=== PATIENT | female | born 1965 | race Caucasian/White ===

== ENCOUNTER 2018-09-24 13:15 | Emergency (ER) ==
[2018-09-24 13:26] VITALS: BP 154/84; TEMP 98.6; BMI 16.5
--- NOTE | 2018-09-24 14:51 | ED.PDOC ---
General ED Provider: Dr. CHERIE BAUMAN Chief Complaint: Respiratory Complaint Stated Complaint: 53 y old coughing,crackles and areas of diminished breathing sounds,No Hx of asthma however smoking and COPD.Cough is dry.Denies any comorbid conditions or medications other than cough and mucus etc. Time Seen by Physician: 14:52 Mode of Arrival: Walk-In Information Source: Patient Exam Limitations: No limitations Primary Care Provider: KERON HO Nursing and Triage Documentation Reviewed and Agree: Yes Does patient meet sepsis criteria?: No System Inflammatory Response Syndrome: Not Applicable Sepsis Protocol: For patient's 13 years and over: Temp is 96.8 and below OR 101 and greater Pulse >90 BPM Resp >20/minute Acutely Altered Mental Status Are patient's symptoms suggestive of a new infection, such as: -Pneumonia -Skin, Soft Tissue -Endocarditis -UTI -Bone, Joint Infection -Implantable Device -Acute Abdominal Infection -Wound Infection -Meningitis -Blood Stream Catheter Infection -Unknown Respiratory Complaint Exam - Respiratory Complaint/Exam Onset/Duration: few days Symptoms Are: Still present Timing: Intermittent Initial Severity: Mild Current Severity: Moderate Location: Chest Character: Reports: Non-productive cough, Dry cough Aggravating: Reports: URI, Passive smoke exposure Alleviating: Reports: Bronchodilators, Spontaneous resolution Associated Signs and Symptoms: Reports: Wheezing, Hoarseness, Decreased oral intake, Increased thirst Related History: Reports: Similar episode Related Surgical History: Reports: None Pulmonary Embolism Risk Factors: Smoking Cardiac Risk Factors: Reports: Hypertension Pseudomonas Risk Factors: Reports: None Tuberculosis Risk Factors: Reports: None Status Asthmaticus Risk Factors: Reports: None Home Oxygen Use: No Recent Stress Test: No Recent Echo/LV Function: No Current Antibiotic Use: No Current Asthma Medication Use: No Respiratory Distress: None Inadequate Respiratory Effort: No Dysphagia Present: No Stridor Present: No JVD Present: No Accessory Muscle Use: No Retractions: Not Present Diminished Breath Sounds: Yes Sinus Tenderness: None Grunting Respirations: No Kussmaul Respirations: No Differential Diagnoses: Asthma, COPD Exacerbation, Pneumonia, Bronchitis Review of Systems - Review Of Systems Constitutional: Reports: No symptoms Eyes: Reports: No symptoms Ears, Nose, Mouth, Throat: Reports: No symptoms Respiratory: Reports: Cough, Short of air, Wheezing Cardiac: Reports: No symptoms GI: Reports: No symptoms : Reports: No symptoms Musculoskeletal: Reports: No symptoms Skin: Reports: No symptoms Neurological: Reports: No symptoms Endocrine: Reports: No symptoms Hematologic/Lymphatic: Reports: No symptoms All Other Systems: Reviewed and Negative Past Medical History - Past Medical History Previously Healthy: Yes Endocrine: Reports: None Cardiovascular: Reports: None Respiratory: Reports: None Hematological: Reports: None Gastrointestinal: Reports: None Genitourinary: Reports: None Neuro/Psych: Reports: None Musculoskeletal: Reports: None Cancer: Reports: None Last Menstrual Period: 3 years - Surgical History General Surgical History: Reports: None - Family History Family History: Reports: None - Social History Smoking Status: Current every day smoker Hx Substance Use: No Alcohol Screening: None - Immunizations Tetanus Shot up to Date: No Physical Exam - Physical Exam Appearance: Well-appearing Ill-appearing: None Pain Distress: None Eyes: HAKEEM, EOMI, Conjunctiva clear ENT: Ears normal, Nose normal, Oropharynx normal Neck: Supple Respiratory: Airway patent, Breath sounds diminished, Respirations nonlabored, Crackles, Wheezes Cardiovascular: RRR, Pulses normal, No rub GI/: Soft, Nontender Musculoskeletal: Normal strength, ROM intact, No edema Skin: Warm, Dry Neurological: Sensation intact, Motor intact, Reflexes intact, Alert, Oriented Psychiatric: Affect appropriate Critical Care Note - Critical Care Note Total Time (mins): 0 Course - Course Hematology/Chemistry: 09/24/18 15:10 Orders, Labs, Meds: Lab Review 09/24/18 15:10 WBC 15.82 H RBC 3.93 L Hgb 12.5 Hct 35.5 L MCV 90.3 MCH 31.8 H MCHC 35.2 RDW Coeff of Deja 12.0 Plt Count 413 Immature Gran % (Auto) 1.1 Neut % (Auto) 79.1 Lymph % (Auto) 10.7 [place] % (Auto) 8.7 Eos % (Auto) 0.1 Baso % (Auto) 0.3 Immature Gran # (Auto) 0.2 Neut # (Auto) 12.5 H Lymph # (Auto) 1.7 [place] # (Auto) 1.4 Eos # (Auto) 0.0 Baso # (Auto) 0.0 Orders Category Date Time Status NEBULIZER TREATMENT Stat CARDIO 09/24/18 15:01 Completed ED IV/MEDIPORT/POWERPORT .ONCE EMERGENCY 09/24/18 15:00 Inactive CBC W/ AUTO DIFF Stat LAB 09/24/18 15:10 Completed COMPREHENSIVE METABOLIC PANEL Stat LAB 09/24/18 14:59 Ordered 0.9 % Sodium Chloride [Saline Flush] MEDS 09/24/18 15:00 Ordered 1 syr IVF PRN PRN Albuterol Sulfate 0.083% Neb [Albuterol 0.083% Neb] MEDS 09/24/18 15:00 Discontinued 1 vial NEB ONCE STA Sodium Chloride 0.9% [Sodium Chloride] 1,000 ml MEDS 09/24/18 15:00 Active IV BOLUS CHEST, 2 VIEWS PA & LAT Stat RADS 09/24/18 14:56 Completed Medications Generic Name Dose Route Start Last Admin Trade Name Freq PRN Reason Stop Dose Admin Sodium Chloride 1,000 mls @ 1,000 mls/hr 09/24/18 15:00 09/24/18 15:15 Sodium Chloride IV 09/24/18 15:59 Not Given BOLUS STA Sodium Chloride 1 syr 09/24/18 15:00 Saline Flush IVF PRN PRN To flush IV Discontinued Medications Generic Name Dose Route Start Last Admin Trade Name Freq PRN Reason Stop Dose Admin Albuterol Sulfate 1 vial 09/24/18 15:00 09/24/18 15:22 Albuterol 0.083% Neb NEB 09/24/18 15:01 1 vial ONCE STA Administration Vital Signs: Temp Pulse Resp BP Pulse Ox 09/24/18 13:17 98.6 F 109 H 22 154/84 H 92 L Departure - Departure Time of Disposition: 15:42 Disposition: HOME SELF-CARE Discharge Problem: COPD (chronic obstructive pulmonary disease) Instructions: Emphysema (ED) Condition: Good Pt referred to PMD for follow-up: Yes IPMP verified?: No Additional Instructions: Amoxicillin 600 mg tid x 7 days. Albuterol inhaler 1 puff bid prn Prednisone 40 mg 1 tab PO qd x 5 days Allergies/Adverse Reactions: Allergies No Known Allergies Allergy (Unverified 09/24/18 14:54) Home Medications: Ambulatory Orders 1 [No Reported Medications] 09/24/18 Disposition Discussed With: Patient, Family
[2018-09-24] MEDS ORDERED: ALBUTEROL 0.083% NEB NEB STA (15:00)
[2018-09-24] MEDS ORDERED: SODIUM CHLORIDE 1,000 ML IV STA (15:00)
--- NOTE | 2018-09-24 15:20 | DI ---
Exam: Two-view chest x-ray. Date: 09/24/2018. Comparison: None. HISTORY: 7-day history of productive cough. FINDINGS: There is mild scoliotic curve in the thoracic spine. The lungs are hyperinflated. There are probable bronchiectatic changes in the lower lobes bilaterally with probable area of consolidatio n involving the lingular segment. Cardiac silhouette and pulmonary vasculature within normal limits. Impression: Emphysematous changes with a probable area of consolidation in the lingular segment, wit h extensive bronchiectatic changes. Recommend correlation to exclude pneumonia.
== END 2018-09-24 15:57 | disposition home or self-care (01) ==
LOC: ED 13:15
DX: R05 Cough (principal); J06.9 Acute upper respiratory infection, unspecified; R06.2 Wheezing; R06.02 Shortness of breath; Z72.0 Tobacco use; J44.9 Chronic obstructive pulmonary disease, unspecified
CPT/HCPCS: 36415; 80053; 85025; 94640; 99283